=== PATIENT | female | born 1960 | race Caucasian/White ===

== ENCOUNTER → 2016-05-18 | Outpatient (CLI) | payer BC ==
[2016-05-18 13:40] LABS: BLOOD UREA NITROGEN 20 mg/dl (7-18); BUN/CREATININE RATIO 25.3 (10-20); CARBON DIOXIDE 24 mmol/L (21-32); CHLORIDE 109 mmol/L (98-107); CREATININE 0.77 mg/dl (0.60-1.20); GLUCOSE 119 mg/dl (70-99); POTASSIUM 3.5 mmol/L (3.5-5.1); SODIUM 144 mmol/L (136-145); URIC ACID 4.5 mg/dl (2.6-7.2)
[2016-05-18 13:51] LABS: PHOSPHORUS 2.7 mg/dl (2.5-4.9); THYROID STIMULATING HORMONE 0.758 uIu/ml (0.300-4.500)
== END | disposition home or self-care (01) ==
LOC: C.LABMFLN 07:22
PROVIDERS: ATTEND Internal Medicine Nephrology
DX: I10 Essential (primary) hypertension (principal)

== ENCOUNTER → 2016-05-30 | Outpatient (CLI) | payer BC ==
--- NOTE | 2016-05-30 09:55 | DIAGNOSTIC IMAGING REPORT ---
RENAL ULTRASOUND CLINICAL HISTORY: Poorly controlled hypertension. COMPARISON STUDY: None. TECHNIQUE: Sonography of the kidneys and the urinary bladder was performed. FINDINGS: The Doppler portion of the study will be reported separately. The right kidney measures 11.6 cm in maximal dimension and the left measures 11.5 cm. This study is compromised by suboptimal penetration but there is no hydronephrosis. A 1.8 cm right renal cyst is noted as well as a 2.2 cm left renal cyst. Renal size and echogenicity are normal. Both ureteral jets were identified. IMPRESSION: 1. No hydronephrosis. 2. Bilateral renal cysts. Electronically signed by: Nabil West M.D. 05/30/2016 9:54 AM Dictated Date/Time: 05/30/2016 9:52 AM
--- NOTE | 2016-05-30 09:58 | DIAGNOSTIC IMAGING REPORT ---
Duplex renal arterial Doppler DUPLEX RENAL ARTERY CLINICAL HISTORY: I10 Poorly-controlled [id number] hypertension TECHNIQUE: Arterial Doppler COMPARISON STUDY: None FINDINGS: Slightly limited exam due to the patient's body habitus. Visualized components of the renal arterial structures shows unremarkable waveforms throughout. There is no significant velocity increase. Impedance characteristics are unremarkable. IMPRESSION: Negative study. Specifically, no evidence for renal arterial stenosis Electronically signed by: Casey Umaña M.D. 05/30/2016 9:57 AM Dictated Date/Time: 05/30/2016 9:53 AM
== END | disposition home or self-care (01) ==
LOC: C.ULTR 08:13
PROVIDERS: ATTEND Internal Medicine Nephrology
DX: I10 Essential (primary) hypertension (principal); N28.1 Cyst of kidney, acquired

== ENCOUNTER → 2016-11-28 | Outpatient (CLI) | payer OTHER ==
[2016-11-28 18:26] LABS: BLOOD UREA NITROGEN 33 mg/dl (7-18); BUN/CREATININE RATIO 29.6 (10-20); CALCIUM 9.2 mg/dl (8.5-10.1); CARBON DIOXIDE 27 mmol/L (21-32); CHLORIDE 108 mmol/L (98-107); GLUCOSE 116 mg/dl (70-99); MAGNESIUM 2.6 mg/dl (1.8-2.4); POTASSIUM 3.5 mmol/L (3.5-5.1); SODIUM 141 mmol/L (136-145)
[2016-11-28 18:28] LABS: PHOSPHORUS 2.6 mg/dl (2.5-4.9)
== END | disposition home or self-care (01) ==
LOC: C.LABMFLN 11:55
PROVIDERS: ATTEND Internal Medicine Nephrology
DX: I10 Essential (primary) hypertension (principal)